=== PATIENT | female | born 1985 | race Caucasian/White ===

== ENCOUNTER 2019-04-12 17:50 | Emergency (ER) | payer BC ==
[2019-04-12 19:24] LABS: Absolute Lymphocytes (CBC) 0.5 K/uL (0.7-4.9); Basophils % 0.2 % (0-1.3); Hematocrit 38.3 % (36.0-45.0); Lymphocytes % 5.7 % (15.3-44.8); RBC Red Blood Cell Count 4.28 M/uL (3.86-4.86)
[2019-04-12] MEDS ORDERED: ONDANSETRON 4 MG/2 ML VIAL ONE (19:33)
[2019-04-12] MEDS ORDERED: FAMOTIDINE 20 MG/2 ML VIAL IV ONE (19:33)
[2019-04-12 19:47] LABS: Platelet Estimate ADEQ; Urine White Blood Cell Casts OK
[2019-04-12 19:48] LABS: Blood Morphology Comment NOTED (NOT SEEN); Poikilocytosis 1+
[2019-04-12 19:54] LABS: Albumin 4.3 g/dL (3.4-5.0); Bilirubin Direct 0.2 mg/dL (0-0.2); Bilirubin Total 0.6 mg/dL (0.2-1.0); Potassium 3.9 mmol/L (3.5-5.1); Protein, Total 7.4 g/dL (6.4-8.2)
[2019-04-12 20:24] LABS: Urine Blood TRACE (NEG); Urine Glucose NEGATIVE (NEG); Urine Protein NEGATIVE (NEG); Urine Specific Gravity 1.025 (1.005-1.030); Urine pH 5.5 (5.0-7.0)
[2019-04-12 20:27] LABS: Urine Bacteria <20 /HPF (<20); Urine RBC <5 /HPF (NONE SEEN)
[2019-04-12 20:28] LABS: Urine Culture Reflex Order NOT NEEDED
--- NOTE | 2019-04-12 20:36 | EDPHYS ---
Physician Documentation [facility] Name: Fallon Torres Age: 33 yrs Sex: Female : 1985 Arrival Date: 04/12/2019 Time: 17:54 Bed 28 Private MD: ED Physician Massimo Henderson HPI: 04/12 20:33 This 33 yrs old Female presents to ER via Ambulatory with complaints of gs Abdominal Pain. 20:33 The patient presents with abdominal pain in the epigastric area. Onset: The gs symptoms/episode began/occurred acutely, 2 hour(s) ago. The symptoms do not radiate. Associated signs and symptoms: Pertinent positives: nausea and vomiting, Pertinent negatives: chest pain. The symptoms are described as burning, sharp. Modifying factors: The symptoms are alleviated by antacids, the symptoms are aggravated by nothing. Severity of pain: At its worst the pain was severe in the emergency department the pain has improved markedly. The patient has experienced similar episodes in the past, a few times. 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 - Social history:: Smoking status: Patient uses tobacco products, denies chronic smoking, but will smoke occasionally. - Ebola Screening: : Patient denies travel to an Ebola-affected area in the 21 days before illness onset. ROS: 20:33 All other systems are negative. gs Exam: 20:33 Head/Face: Normocephalic, atraumatic. Eyes: Pupils equal round and reactive to light, gs extra-ocular motions intact. Lids and lashes normal. Conjunctiva and sclera are non-icteric and not injected. Cornea within normal limits. Periorbital areas with no swelling, redness, or edema. ENT: Nares patent. No nasal discharge, no septal abnormalities noted. Tympanic membranes are normal and external auditory canals are clear. Oropharynx with no redness, swelling, or masses, exudates, or evidence of obstruction, uvula midline. Mucous membranes moist. Neck: Trachea midline, no thyromegaly or masses palpated, and no cervical lymphadenopathy. Supple, full range of motion without nuchal rigidity, or vertebral point tenderness. No Meningismus. Chest/axilla: Normal chest wall appearance and motion. Nontender with no deformity. No lesions are appreciated. Cardiovascular: Regular rate and rhythm with a normal S1 and S2. No gallops, murmurs, or rubs. Normal PMI, no JVD. No pulse deficits. Respiratory: Lungs have equal breath sounds bilaterally, clear to auscultation and percussion. No rales, rhonchi or wheezes noted. No increased work of breathing, no retractions or nasal flaring. Back: No spinal tenderness. No costovertebral tenderness. Full range of motion. Skin: Warm, dry with normal turgor. Normal color with no rashes, no lesions, and no evidence of cellulitis. MS/ Extremity: Pulses equal, no cyanosis. Neurovascular intact. Full, normal range of motion. Neuro: Awake and alert, GCS 15, oriented to person, place, time, and situation. Cranial nerves II-XII grossly intact. Motor strength 5/5 in all extremities. Sensory grossly intact. Cerebellar exam normal. Normal gait. 20:33 Constitutional: The patient appears alert, awake. 20:33 Abdomen/GI: Palpation: mild abdominal tenderness, in the epigastric area, rebound tenderness, is not appreciated. Vital Signs: 18:25 BP 121 / 84; Pulse 62; Resp 16; Temp 97.7; Pulse Ox 100% on R/A; aj1 20:30 BP 118 / 77; Pulse 67; Resp 18; Pulse Ox 100% on R/A; wh MDM: 18:55 Patient medically screened. 20:33 Differential diagnosis: gastritis, non-specific abd pain. Data reviewed: vital signs, nurses notes, lab test result(s). Response to treatment: the patient's symptoms have markedly improved after treatment, the patient's symptoms have resolved after treatment, the patient's condition has returned to base line, and as a result, I will discharge patient. 04/12 18:55 Order name: Urine Microscopic Only; Complete Time: 20:31 04/12 18:55 Order name: Basic Metabolic Panel; Complete Time: 20:31 04/12 18:55 Order name: CBC with Diff; Complete Time: 19:53 04/12 18:55 Order name: Hepatic Function; Complete Time: 20:31 04/12 18:55 Order name: Lipase; Complete Time: 20:31 04/12 19:31 Order name: CBC Smear Scan; Complete Time: 19:53 EDMN 04/12 18:55 Order name: Urine Test (obtain specimen); Complete Time: 19:29 04/12 18:55 Order name: Urine Dipstick-Ancillary (obtain specimen); Complete Time: 19:29 04/12 18:55 Order name: IV Saline Lock; Complete Time: 19:10 04/12 18:55 Order name: Labs collected and sent; Complete Time: 19:11 04/12 20:10 Order name: Urine Dipstick--Ancillary (enter results); Complete Time: 20:31 em1 04/12 20:10 Order name: Urine --Ancillary (enter results); Complete Time: 20:31 em1 Administered Medications: 20:52 Not Given (Patient Refused): Zofran 4 mg IVP once; over 2 minutes 20:53 Not Given (Patient Refused): Pepcid 20 mg IVP once Disposition: 04/12/19 20:35 Discharged to Home. Impression: Epigastric pain. - Condition is Stable. - Discharge Instructions: Abdominal Pain, Adult. - Prescriptions for Pepcid 20 mg Oral Tablet - take 1 tablet by ORAL route every 12 hours for 10 days; 20 tablet. Zofran 4 mg Oral Tablet - take 1 tablet by ORAL route every 12 hours As needed; 6 tablet. - Medication Reconciliation Form, Thank You Letter, Antibiotic Education, Prescription Opioid Use form. - Follow up: Private Physician; When: 1 - 2 days; Reason: Re-evaluation by your physician. Signatures: Dispatcher [employer] Amita Mejia RN RN aj1 Merari Link Massimo Henderson MD MD gs Corrections: (The following items were deleted from the chart) 21:05 20:35 04/12/2019 20:35 Discharged to Home. Impression: Epigastric pain. Condition is wh Stable. Forms are Medication Reconciliation Form, Thank You Letter, Antibiotic Education, Prescription Opioid Use. Follow up: Private Physician; When: 1 - 2 days; Reason: Re-evaluation by your physician.
--- NOTE | 2019-04-12 20:36 | ER ---
Nurse's Notes [facility] Name: Fallon Torres Age: 33 yrs Sex: Female : 1985 Arrival Date: 04/12/2019 Time: 17:54 Bed 28 Private MD: Diagnosis: Epigastric pain Presentation: 04/12 18:23 Presenting complaint: Patient states: Today at 1530 she started having epigastric pain, aj1 nausea and shortness of breath. Denies V/D. Transition of care: patient was not received from another setting of care. Onset of symptoms was April 12, 2019. Risk Assessment: Do you want to hurt yourself or someone else? Patient reports no desire to harm self or others. Initial Sepsis Screen: Does the patient meet any 2 criteria? No. Patient's initial sepsis screen is negative. Does the patient have a suspected source of infection? Yes: Acute abdominal pain. Care prior to arrival: None. 18:23 Method Of Arrival: Ambulatory aj1 18:23 Acuity: BRAYDEN 3 aj1 Triage Assessment: 18:25 General: Appears in no apparent distress. uncomfortable, Behavior is calm, cooperative, aj1 appropriate for age. Pain: Complains of pain in epigastric area. Respiratory: Reports shortness of breath Onset: The symptoms/episode began/occurred today, the patient reports symptoms have resolved. 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 - Social history:: Smoking status: Patient uses tobacco products, denies chronic smoking, but will smoke occasionally. - Ebola Screening: : Patient denies travel to an Ebola-affected area in the 21 days before illness onset. Screenin:27 Abuse screen: Denies threats or abuse. Denies injuries from another. Nutritional aj1 screening: No deficits noted. Tuberculosis screening: No symptoms or risk factors identified. Fall Risk None identified. Assessment: 18:27 General: Appears in no apparent distress. comfortable, Behavior is calm, cooperative, aj1 appropriate for age. Pain: Complains of pain in epigastric area. Neuro: Level of Consciousness is awake, alert, obeys commands. Cardiovascular: Patient's skin is warm and dry. Rhythm is regular. Respiratory: Airway is patent Respiratory effort is even, unlabored, Respiratory pattern is regular, symmetrical, Breath sounds are clear bilaterally. GI: Abdomen is flat, non-distended, Bowel sounds present X 4 quads. Abd is soft X 4 quads Reports nausea, Patient currently denies diarrhea, vomiting. : No signs and/or symptoms were reported regarding the genitourinary system. EENT: No signs and/or symptoms were reported regarding the EENT system. Derm: No signs and/or symptoms reported regarding the dermatologic system. Skin is pink, warm \T\ dry. normal. Musculoskeletal: No signs and/or symptoms reported regarding the musculoskeletal system. Circulation, motion, and sensation intact. 19:25 Reassessment: Patient appears in no apparent distress at this time. No changes from previously documented assessment. Patient and/or family updated on plan of care and expected duration. Pain level reassessed. Patient is alert, oriented x 3, equal unlabored respirations, skin warm/dry/pink. 20:30 Reassessment: Patient appears in no apparent distress at this time. No changes from previously documented assessment. Patient and/or family updated on plan of care and expected duration. Pain level reassessed. Patient is alert, oriented x 3, equal unlabored respirations, skin warm/dry/pink. Patient denies pain at this time. Patient states feeling better. Patient states symptoms have improved. Vital Signs: 18:25 BP 121 / 84; Pulse 62; Resp 16; Temp 97.7; Pulse Ox 100% on R/A; aj1 20:30 BP 118 / 77; Pulse 67; Resp 18; Pulse Ox 100% on R/A; ED Course: 17:54 Patient arrived in ED. rg4 18:21 Massimo Henderson MD is Attending Physician. gs 18:23 Amita Carter, DARRYN is Primary Nurse. aj1 18:24 Triage completed. aj1 18:25 Arm band placed on Patient placed in an exam room. aj1 18:27 Patient has correct armband on for positive identification. Bed in low position. aj1 18:27 No provider procedures requiring assistance completed. aj1 19:10 Initial lab(s) drawn, by me, sent to lab. Inserted saline lock: 22 gauge in right lt1 antecubital area, using aseptic technique. 19:28 Urine collected: clean catch specimen, clear. lt1 19:29 Urine Microscopic Only Sent. lt1 21:05 IV discontinued, intact, bleeding controlled, No redness/swelling at site. Administered Medications: 20:52 Not Given (Patient Refused): Zofran 4 mg IVP once; over 2 minutes 20:53 Not Given (Patient Refused): Pepcid 20 mg IVP once Outcome: 20:35 Discharge ordered by . 21:04 Discharged to home ambulatory. 21:04 Condition: good 21:04 Discharge instructions given to patient, Instructed on discharge instructions, follow up and referral plans. medication usage, POC Abd pain Demonstrated understanding of Prescriptions given X 2. 21:05 Patient left the ED. Signatures: Amita Carter, RN RN aj1 Ally Mckenzie rg4 Merari Link Massimo Henderson MD MD Jimenez, Deepti lt1 Corrections: (The following items were deleted from the chart) 22:12 19:25 Reassessment: Patient appears in no apparent distress at this time. No changes wh from previously documented assessment. Patient and/or family updated on plan of care and expected duration. Pain level reassessed. Patient is alert/active/playful, equal unlabored respirations, skin warm/dry/pink. Pt held by mother 22:12 20:30 Reassessment: Patient appears in no apparent distress at this time. No changes wh from previously documented assessment. Patient and/or family updated on plan of care and expected duration. Pain level reassessed. Patient is alert/active/playful, equal unlabored respirations, skin warm/dry/pink.
[2019-04-12 22:02] VITALS: TEMP 97.7; O2SAT 100
[2019-04-12 22:04] VITALS: BP 118/77
== END 2019-04-12 21:05 | disposition home or self-care (01) ==
LOC: ER 17:50
DX: R10.13 Epigastric pain (principal); Z72.0 Tobacco use; Z88.0 Allergy status to penicillin; Z98.82 Breast implant status
CPT/HCPCS: 36415; 80048; 80076; 81003; 81015; 81025; 83690; 85025; 99283; J2405